=== PATIENT | female | born 1995 | race Caucasian/White ===

== ENCOUNTER → 2018-08-23 11:18 | Outpatient (CLI) | payer BC ==
[2016-01-13 19:16] VITALS: BMI 32.7
[~2018-08-23 11:18] MED LIST: COLACE100 MG PO; IBUPROFEN600 MG PO; PERCOCET 5-3251 TAB PO; PRENATAL COMPLE1 TAB PO; ZITHROMAX250 MG
== END | disposition home or self-care (01) ==
LOC: D.US 11:18
DX: R22.42 Localized swelling, mass and lump, left lower limb (principal)

== ENCOUNTER → 2018-09-26 16:07 | Outpatient (CLI) | payer BC ==
[2016-01-13 19:16] VITALS: BMI 32.7
== END | disposition home or self-care (01) ==
LOC: D.LDO 16:07
DX: O10.913 Unspecified pre-existing hypertension complicating pregnancy, third trimester (principal); Z3A.29 29 weeks gestation of pregnancy

== ENCOUNTER → 2018-09-29 11:45 | Outpatient (CLI) | payer BC ==
[2016-01-13 19:16] VITALS: BMI 32.7
[2018-09-29 12:35] LABS: HEMATOCRIT 34.7 % (36.0-48.0); HEMOGLOBIN 11.9 g/dL (12-16); MCH 29.4 pg (26.0-34.0); MCHC 34.3 g/dL (31.0-37.0); MCV 85.7 fL (80.0-100.0); MEAN PLATELET VOLUME 9.9 fL (7.4-10.4); RBC 4.05 10x6/uL (4.00-5.40); WBC 9.8 10x3/uL (4.8-10.8)
[2018-09-29 12:40] LABS: CALC OSMOLALITY 275 mosm/kg (275-300); CALCIUM 9.1 mg/dL (8.5-10.1); CARBON DIOXIDE 21.3 mmol/L (21.0-32.0); CHLORIDE - SERUM 106 mmol/L (98-107); CREATININE - SERUM 0.7 mg/dL (0.6-1.3); GLUCOSE 103 mg/dL (74-106); POTASSIUM - SERUM 3.5 mmol/L (3.5-5.1); SODIUM 139 mmol/L (136-145); UREA NITROGEN 6 mg/dL (7-18); URIC ACID 4.3 mg/dL (2.6-7.2); eGFR NON AFRICAN AMERICAN > 90 mL/min (90-120)
[2018-09-29 13:31] LABS: APPEARANCE SL CLDY (CLEAR); BACTERIA MODERATE /hpf (NONE SEEN); BILIRUBIN NEGATIVE (NEGATIVE); COLOR YELLOW (YELLOW); GLUCOSE NEGATIVE (NEGATIVE); KETONE NEGATIVE (NEGATIVE); MUCUS <1+ /lpf (NONE SEEN); NITRITE NEGATIVE (NEGATIVE); PROTEIN NEGATIVE (NEGATIVE); SPECIFIC GRAVITY 1.015 (1.005-1.020); UROBILINOGEN NORMAL (NORMAL)
== END | disposition home or self-care (01) ==
LOC: D.LDO 11:45
PROVIDERS: Obstetrics & Gynecology
DX: O26.893 Other specified pregnancy related conditions, third trimester (principal); Z3A.30 30 weeks gestation of pregnancy

== ENCOUNTER → 2018-10-04 11:23 | Outpatient (CLI) | payer BC ==
[2016-01-13 19:16] VITALS: BMI 32.7
== END | disposition home or self-care (01) ==
LOC: D.LDO 11:23
DX: O10.913 Unspecified pre-existing hypertension complicating pregnancy, third trimester (principal); Z3A.31 31 weeks gestation of pregnancy

== ENCOUNTER → 2018-10-07 11:42 | Outpatient (CLI) | payer BC ==
[2016-01-13 19:16] VITALS: BMI 32.7
[2018-10-07 12:27] LABS: BASOPHILS 0.1 % (0-2); EOSINOPHILS 1.3 % (0-7); HEMATOCRIT 35.5 % (36.0-48.0); IMMATURE GRANULOCYTES 0.8 % (0-5); LYMPHOCYTES 11.7 % (15-50); MCH 29.5 pg (26.0-34.0); MCHC 33.8 g/dL (31.0-37.0); MCV 87.2 fL (80.0-100.0); MEAN PLATELET VOLUME 9.9 fL (7.4-10.4); MONOCYTES 12.3 % (2-11); NEUTROPHILS 73.8 % (40-80); PLATELET COUNT 255 10x3/uL (130-400); RBC 4.07 10x6/uL (4.00-5.40); WBC 9.4 10x3/uL (4.8-10.8)
[2018-10-07 12:40] LABS: ALBUMIN 2.8 g/dL (3.4-5.0); ALKALINE PHOSPHATASE 107 U/L (46-116); ALT (SGPT) 19 U/L (10-68); BILIRUBIN - TOTAL 0.25 mg/dL (0.2-1.3); CALC OSMOLALITY 276 mosm/kg (275-300); CALCIUM 8.9 mg/dL (8.5-10.1); CARBON DIOXIDE 21.3 mmol/L (21.0-32.0); CHLORIDE - SERUM 104 mmol/L (98-107); CREATININE - SERUM 0.7 mg/dL (0.6-1.3); GLUCOSE 110 mg/dL (74-106); POTASSIUM - SERUM 3.4 mmol/L (3.5-5.1); PROTEIN - SERUM 6.5 g/dL (6.4-8.2); SODIUM 139 mmol/L (136-145); UREA NITROGEN 6 mg/dL (7-18); eGFR NON AFRICAN AMERICAN > 90 mL/min (90-120)
[2018-10-07 12:41] LABS: BILIRUBIN - DIRECT 0.05 mg/dL (0.00-0.30)
== END | disposition home or self-care (01) ==
LOC: D.LDO 11:42
PROVIDERS: Obstetrics & Gynecology
DX: O26.893 Other specified pregnancy related conditions, third trimester (principal); Z3A.31 31 weeks gestation of pregnancy

== ENCOUNTER → 2018-10-12 08:52 | Outpatient (CLI) | payer BC ==
[2016-01-13 19:16] VITALS: BMI 32.7
[2018-10-12 10:37] LABS: BASOPHILS 0.2 % (0-2); EOSINOPHILS 2.2 % (0-7); HEMATOCRIT 34.9 % (36.0-48.0); HEMOGLOBIN 11.8 g/dL (12-16); IMMATURE GRANULOCYTES 0.7 % (0-5); LYMPHOCYTES 13.9 % (15-50); MCH 29.4 pg (26.0-34.0); MCHC 33.8 g/dL (31.0-37.0); MEAN PLATELET VOLUME 9.6 fL (7.4-10.4); MONOCYTES 7.5 % (2-11); NEUTROPHILS 75.5 % (40-80); PLATELET COUNT 280 10x3/uL (130-400); RBC 4.01 10x6/uL (4.00-5.40); WBC 11.9 10x3/uL (4.8-10.8)
[2018-10-12 10:41] LABS: ALBUMIN 2.5 g/dL (3.4-5.0); ALKALINE PHOSPHATASE 131 U/L (46-116); ALT (SGPT) 23 U/L (10-68); BILIRUBIN - DIRECT 0.09 mg/dL (0.00-0.30); BILIRUBIN - INDIRECT 0.13 mg/dL (0.00-1.00); BILIRUBIN - TOTAL 0.22 mg/dL (0.2-1.3); CALC OSMOLALITY 274 mosm/kg (275-300); CALCIUM 8.6 mg/dL (8.5-10.1); CARBON DIOXIDE 21.3 mmol/L (21.0-32.0); CHLORIDE - SERUM 107 mmol/L (98-107); CREATININE - SERUM 0.6 mg/dL (0.6-1.3); GLUCOSE 101 mg/dL (74-106); POTASSIUM - SERUM 3.3 mmol/L (3.5-5.1); PROTEIN - SERUM 6.6 g/dL (6.4-8.2); SODIUM 139 mmol/L (136-145); UREA NITROGEN 5 mg/dL (7-18); URIC ACID 3.7 mg/dL (2.6-7.2); eGFR NON AFRICAN AMERICAN > 90 mL/min (90-120)
[2018-10-14 14:57] LABS: PROTEIN - URINE 27.4 mg/dL (0.0-11.9)
== END | disposition home or self-care (01) ==
LOC: D.LDO 08:52
PROVIDERS: Obstetrics & Gynecology
DX: O10.913 Unspecified pre-existing hypertension complicating pregnancy, third trimester (principal); Z3A.32 32 weeks gestation of pregnancy

== ENCOUNTER → 2018-10-15 12:31 | Outpatient (CLI) | payer BC ==
[2016-01-13 19:16] VITALS: BMI 32.7
== END | disposition home or self-care (01) ==
LOC: D.LDO 12:31
DX: O10.913 Unspecified pre-existing hypertension complicating pregnancy, third trimester (principal); Z3A.32 32 weeks gestation of pregnancy

== ENCOUNTER → 2018-10-17 12:18 | Outpatient (CLI) | payer BC ==
[2016-01-13 19:16] VITALS: BMI 32.7
== END | disposition home or self-care (01) ==
LOC: D.LDO 12:18
DX: O10.913 Unspecified pre-existing hypertension complicating pregnancy, third trimester (principal); Z3A.32 32 weeks gestation of pregnancy

== ENCOUNTER → 2018-10-20 07:51 | Outpatient (CLI) | payer BC ==
[2016-01-13 19:16] VITALS: BMI 32.7
[2018-10-20 08:42] LABS: BASOPHILS 0.2 % (0-2); EOSINOPHILS 2.1 % (0-7); HEMOGLOBIN 11.8 g/dL (12-16); IMMATURE GRANULOCYTES 1.2 % (0-5); LYMPHOCYTES 15.4 % (15-50); MCH 29.1 pg (26.0-34.0); MCHC 33.7 g/dL (31.0-37.0); MCV 86.2 fL (80.0-100.0); MEAN PLATELET VOLUME 9.7 fL (7.4-10.4); MONOCYTES 10.7 % (2-11); NEUTROPHILS 70.4 % (40-80); PLATELET COUNT 313 10x3/uL (130-400); RBC 4.06 10x6/uL (4.00-5.40); RDW 13.9 % (11.5-14.5); WBC 10.3 10x3/uL (4.8-10.8)
[2018-10-20 08:58] LABS: ALBUMIN 2.4 g/dL (3.4-5.0); ALKALINE PHOSPHATASE 126 U/L (46-116); ALT (SGPT) 24 U/L (10-68); BILIRUBIN - TOTAL 0.24 mg/dL (0.2-1.3); CALC OSMOLALITY 276 mosm/kg (275-300); CALCIUM 8.8 mg/dL (8.5-10.1); CARBON DIOXIDE 20.1 mmol/L (21.0-32.0); CHLORIDE - SERUM 106 mmol/L (98-107); CREATININE - SERUM 0.6 mg/dL (0.6-1.3); GLUCOSE 100 mg/dL (74-106); POTASSIUM - SERUM 3.6 mmol/L (3.5-5.1); PROTEIN - SERUM 6.3 g/dL (6.4-8.2); SODIUM 140 mmol/L (136-145); UREA NITROGEN 6 mg/dL (7-18); eGFR NON AFRICAN AMERICAN > 90 mL/min (90-120)
[2018-10-20 09:00] LABS: BILIRUBIN - DIRECT 0.06 mg/dL (0.00-0.30); BILIRUBIN - INDIRECT 0.18 mg/dL (0.00-1.00); URIC ACID 4.2 mg/dL (2.6-7.2)
== END | disposition home or self-care (01) ==
LOC: D.LDO 07:51
PROVIDERS: Obstetrics & Gynecology
DX: O10.913 Unspecified pre-existing hypertension complicating pregnancy, third trimester (principal); Z3A.33 33 weeks gestation of pregnancy

== ENCOUNTER → 2018-10-24 13:56 | Outpatient (CLI) | payer BC ==
[2016-01-13 19:16] VITALS: BMI 32.7
== END | disposition home or self-care (01) ==
LOC: D.LDO 13:56
DX: O10.913 Unspecified pre-existing hypertension complicating pregnancy, third trimester (principal); Z3A.33 33 weeks gestation of pregnancy

== ENCOUNTER 2018-10-27 20:07 | Outpatient (CLI) | payer BC ==
[2016-01-13 19:16] VITALS: BMI 32.7
[2018-10-27 20:30] LABS: BASOPHILS 0.2 % (0-2); EOSINOPHILS 1.8 % (0-7); IMMATURE GRANULOCYTES 0.7 % (0-5); LYMPHOCYTES 23.6 % (15-50); MCH 29.5 pg (26.0-34.0); MCHC 34.3 g/dL (31.0-37.0); MEAN PLATELET VOLUME 9.7 fL (7.4-10.4); MONOCYTES 10.1 % (2-11); NEUTROPHILS 63.6 % (40-80); PLATELET COUNT 292 10x3/uL (130-400); RBC 4.07 10x6/uL (4.00-5.40); RDW 13.9 % (11.5-14.5); WBC 11.1 10x3/uL (4.8-10.8)
[2018-10-27 20:50] LABS: ALBUMIN 2.6 g/dL (3.4-5.0); ALKALINE PHOSPHATASE 130 U/L (46-116); ALT (SGPT) 23 U/L (10-68); BILIRUBIN - TOTAL 0.25 mg/dL (0.2-1.3); CALC OSMOLALITY 271 mosm/kg (275-300); CALCIUM 8.8 mg/dL (8.5-10.1); CARBON DIOXIDE 21.7 mmol/L (21.0-32.0); CHLORIDE - SERUM 103 mmol/L (98-107); CREATININE - SERUM 0.7 mg/dL (0.6-1.3); GLUCOSE 105 mg/dL (74-106); LDH 163 U/L (81-234); POTASSIUM - SERUM 3.3 mmol/L (3.5-5.1); PROTEIN - SERUM 6.9 g/dL (6.4-8.2); SODIUM 137 mmol/L (136-145); UREA NITROGEN 6 mg/dL (7-18); URIC ACID 3.9 mg/dL (2.6-7.2); eGFR NON AFRICAN AMERICAN > 90 mL/min (90-120)
[2018-10-27 21:49] LABS: CREATININE - URINE 162.7 mg/dL (30-125); PRO/CRE RATIO URINE 0.2 mg/g; PROTEIN - URINE 36.1 mg/dL (0.0-11.9)
== END 2018-10-27 23:20 ==
LOC: D.LDO 20:07
PROVIDERS: Obstetrics & Gynecology
DX: O13.3 Gestational [pregnancy-induced] hypertension without significant proteinuria, third trimester (principal); Z3A.34 34 weeks gestation of pregnancy

== ENCOUNTER → 2018-10-31 12:51 | Outpatient (CLI) | payer BC ==
[2016-01-13 19:16] VITALS: BMI 32.7
== END | disposition home or self-care (01) ==
LOC: D.LDO 12:51
DX: O26.893 Other specified pregnancy related conditions, third trimester (principal); Z3A.34 34 weeks gestation of pregnancy

== ENCOUNTER → 2018-11-03 10:31 | Outpatient (CLI) | payer BC ==
[2016-01-13 19:16] VITALS: BMI 32.7
[2018-11-03 10:56] LABS: BASOPHILS 0.2 % (0-2); EOSINOPHILS 1.8 % (0-7); HEMATOCRIT 35.6 % (36.0-48.0); HEMOGLOBIN 12.1 g/dL (12-16); IMMATURE GRANULOCYTES 0.7 % (0-5); MCV 85.4 fL (80.0-100.0); MEAN PLATELET VOLUME 9.9 fL (7.4-10.4); MONOCYTES 8.4 % (2-11); NEUTROPHILS 70.9 % (40-80); PLATELET COUNT 268 10x3/uL (130-400); RBC 4.17 10x6/uL (4.00-5.40); RDW 13.9 % (11.5-14.5); WBC 10.6 10x3/uL (4.8-10.8)
[2018-11-03 11:04] LABS: ALBUMIN 2.4 g/dL (3.4-5.0); ALKALINE PHOSPHATASE 140 U/L (46-116); ALT (SGPT) 19 U/L (10-68); BILIRUBIN - DIRECT 0.03 mg/dL (0.00-0.30); BILIRUBIN - INDIRECT 0.14 mg/dL (0.00-1.00); BILIRUBIN - TOTAL 0.17 mg/dL (0.2-1.3); CALC OSMOLALITY 273 mosm/kg (275-300); CALCIUM 8.4 mg/dL (8.5-10.1); CARBON DIOXIDE 18.9 mmol/L (21.0-32.0); CHLORIDE - SERUM 105 mmol/L (98-107); CREATININE - SERUM 0.6 mg/dL (0.6-1.3); GLUCOSE 104 mg/dL (74-106); POTASSIUM - SERUM 3.6 mmol/L (3.5-5.1); PROTEIN - SERUM 6.5 g/dL (6.4-8.2); SODIUM 138 mmol/L (136-145); UREA NITROGEN 6 mg/dL (7-18); URIC ACID 4.3 mg/dL (2.6-7.2); eGFR NON AFRICAN AMERICAN > 90 mL/min (90-120)
== END | disposition home or self-care (01) ==
LOC: D.LDO 10:31
PROVIDERS: Obstetrics & Gynecology
DX: O10.913 Unspecified pre-existing hypertension complicating pregnancy, third trimester (principal); Z3A.35 35 weeks gestation of pregnancy

== ENCOUNTER → 2018-11-07 12:52 | Outpatient (CLI) | payer BC ==
[2016-01-13 19:16] VITALS: BMI 32.7
== END | disposition home or self-care (01) ==
LOC: D.LDO 12:52
DX: O13.3 Gestational [pregnancy-induced] hypertension without significant proteinuria, third trimester (principal); Z3A.35 35 weeks gestation of pregnancy

== ENCOUNTER → 2018-11-14 13:04 | Outpatient (CLI) | payer BC ==
[2016-01-13 19:16] VITALS: BMI 32.7
[~2018-11-14 13:04] MED LIST changes: +PRENAVITE1 TAB PO
== END | disposition home or self-care (01) ==
LOC: D.LDO 13:04
PROVIDERS: ATTEND Obstetrics & Gynecology
DX: O13.3 Gestational [pregnancy-induced] hypertension without significant proteinuria, third trimester (principal); Z3A.36 36 weeks gestation of pregnancy

== ENCOUNTER → 2018-11-17 10:16 | Outpatient (CLI) | payer BC ==
[2016-01-13 19:16] VITALS: BMI 32.7
[2018-11-17 11:33] LABS: HEMATOCRIT 34.9 % (36.0-48.0); HEMOGLOBIN 11.6 g/dL (12-16); MCH 28.6 pg (26.0-34.0); MCHC 33.2 g/dL (31.0-37.0); MCV 86.2 fL (80.0-100.0); MEAN PLATELET VOLUME 10.4 fL (7.4-10.4); RBC 4.05 10x6/uL (4.00-5.40); WBC 9.8 10x3/uL (4.8-10.8)
[2018-11-17 11:58] LABS: CALC OSMOLALITY 276 mosm/kg (275-300); CALCIUM 8.7 mg/dL (8.5-10.1); CHLORIDE - SERUM 106 mmol/L (98-107); CREATININE - SERUM 0.7 mg/dL (0.6-1.3); GLUCOSE 117 mg/dL (74-106); POTASSIUM - SERUM 3.5 mmol/L (3.5-5.1); SODIUM 140 mmol/L (136-145); UREA NITROGEN 5 mg/dL (7-18); URIC ACID 4.5 mg/dL (2.6-7.2); eGFR NON AFRICAN AMERICAN > 90 mL/min (90-120)
== END | disposition home or self-care (01) ==
LOC: D.LDO 10:16
PROVIDERS: ATTEND Obstetrics & Gynecology
DX: O16.2 Unspecified maternal hypertension, second trimester (principal); Z3A.00 Weeks of gestation of pregnancy not specified

== ENCOUNTER → 2018-11-21 12:41 | Outpatient (CLI) | payer BC ==
[2016-01-13 19:16] VITALS: BMI 32.7
[~2018-11-21 12:41] MED LIST changes: +HYDROCODON-ACE1 EA10 PO; +MOTRIN600 MG PEG
== END | disposition home or self-care (01) ==
LOC: D.LDO 12:41
PROVIDERS: ATTEND Obstetrics & Gynecology
DX: O26.893 Other specified pregnancy related conditions, third trimester (principal); R03.0 Elevated blood-pressure reading, without diagnosis of hypertension; Z3A.37 37 weeks gestation of pregnancy

== ENCOUNTER 2018-11-22 10:31 | Inpatient (IN) | payer BC ==
[~2018-11-22] VITALS: Ht 162.6 cm; Wt 103.4 kg
[~2018-11-22 10:31] MED LIST changes: -HYDROCODON-ACE1 EA10 PO; -MOTRIN600 MG PEG; -PRENAVITE1 TAB PO
[2018-11-22] MEDS ORDERED: PRENAVITE1 TAB PO (10:32)
[2018-11-22 10:44] VITALS: BP 144/85; BMI 39.2
[2018-11-22 11:00] LABS: HEMATOCRIT 36.5 % (36.0-48.0); HEMOGLOBIN 12.3 g/dL (12-16); MCH 28.7 pg (26.0-34.0); MCHC 33.7 g/dL (31.0-37.0); MCV 85.3 fL (80.0-100.0); MEAN PLATELET VOLUME 10.1 fL (7.4-10.4); RBC 4.28 10x6/uL (4.00-5.40); RDW 13.8 % (11.5-14.5); WBC 9.5 10x3/uL (4.8-10.8)
[2018-11-22 13:14] LABS: APPEARANCE CLEAR (CLEAR); BACTERIA FEW /hpf (NONE SEEN); BILIRUBIN NEGATIVE (NEGATIVE); COLOR YELLOW (YELLOW); EPITHELIAL CELLS 0-5 /hpf (0-5); GLUCOSE NEGATIVE (NEGATIVE); KETONE NEGATIVE (NEGATIVE); MUCUS <1+ /lpf (NONE SEEN); NITRITE NEGATIVE (NEGATIVE); PROTEIN NEGATIVE (NEGATIVE); UROBILINOGEN NORMAL (NORMAL); WHITE CELLS - URINE 0-5 /hpf (0-5)
--- NOTE | 2018-11-22 14:58 | NUR ---
SCANT BLEEDING NOTED TO PERIPAD
[2018-11-22 15:24] VITALS: BP 103/52
--- NOTE | 2018-11-22 15:30 | NUR ---
RECEIVED BY BED FROM RECOVERY ROOM, SHE IS AWAKE AND ALERT. ROTH CATH TO BEDSIDE GRAVITY DRAIN WITH TOTAL OF 1100ML NOTED TO BAG. IV TO LEFT HAND INFUSING LR VIA PUMP. PT IS ABLE TO MOVE HER LEGS AND RATES PAIN AT 5/10. FUNDUS FIRM AT U/1 WITH SCANT BLEEDING NOTED WITHOUT CLOTS. SCDS BILAT ORDERED AND CONNECTED TO PUMP. CALL LIGHT IN REACH, SIDE RAILS RAISED X 2, SPOUSE AT BEDSIDE.
--- NOTE | 2018-11-22 16:15 | NUR ---
FUNDUS FIRM WITH MASSAGE AT U/1, LIGHT LOCHIA NOTED WITHOUT CLOTS. TOWELS/PADS CHANGED. NO OTHER NEEDS AT THIS TIME. CALL LIGHT REMAINS IN REACH, SPOUSE AND ADDITIONAL FAMILY MEMBERS AT BEDSIDE.
--- NOTE | 2018-11-22 16:30 | NUR ---
FUNDUS FIRM AT U/1 WITH LIGHT LOCHIA NOTED, PAM CARE PER NURSE, TOWELS CHANGED. REMAINS SKIN TO SKIN PER NURSERY NURSE INSTRUCTIONS. SPOUSE AT BEDSIDE, CALL LIGHT IN REACH.
--- NOTE | 2018-11-22 16:57 | NUR ---
POSITION CHANGED TO LEFT TILT PER REQUEST. REMAINS SKIN TO SKIN AT THIS TIME. FAMILY AT BEDSIDE, SIDE RAILS UP X 2 WITH PHONE AND CALL LIGHT IN REACH.
--- NOTE | 2018-11-22 17:28 | NUR ---
DENIES NEEDS AT THIS TIME, RATES PAIN AT 3/10 AND IS USING PROFESSOR OF FINE ART NEEDED. FUNDUS FIRM AT U/U. FAMILY AT BEDSIDE AND PT BONDING WITH INFANT. CALL LIGHT IN REACH.
[2018-11-22 18:00] VITALS: BP 114/52
--- NOTE | 2018-11-22 18:00 | NUR ---
INFANT TAKEN BY CRIB TO NURSERY. FAMILY HAS LEFT AT THIS TIME. PT RATES PAIN AT 3/10, FUNDUS FIRM AT U/1 WITH MODERATE LOCHIA NOTED BUT NO CLOTS. PAM/ROTH CARE PER RN, PT ABLE TO LIFT BOTTOM SO THAT PINK PAD, BLUE CHUX AND TOWELS COULD BE CHANGED. SHE ALSO MOVES HERSELF UP IN BED AND RAISES HEAD OF BED TO SEMI FOWLERS. ROTH CATH WITH 300ML ADDED URINE SINCE 1600. LARGE CUP OF ICE PER REQUEST. CALL LIGHT IN REACH WITH SIDE RAILS UP X 2, SPOUSE AT BEDSIDE.
--- NOTE | 2018-11-22 20:00 | NUR ---
PT REC'D IN BED AT THIS TIME. DENIES COMPLAINTS OF PAIN NOTED AT THIS TIME. IV OF NS+2O UNITS OF PITOCIN INFUSING TO THE LEFT HAND AT 125 ML/HR. STIE CLEAR AND PATENT AT THIS TIME. LUNGS CLEAR. BS HYPOACTIVE. DRESSING CDI. FUNDUS FIRM AND MIDLINE WITH MODERATE LOCHIA NOTED. ROTH CATH PATENT WITH 1100 ML OF URINE NOTED. SCDS IN PLACE AND FUNCTIONAL . SIDERAILS UP FOR SAFETY. CALL LIGHT IN PT REACH. Adi MELTON. RN
--- NOTE | 2018-11-22 21:30 | NUR ---
ICE PACK REFILLED AT THIS TIME. DRESSING REMIANS CDI. Adi MELTON RN
--- NOTE | 2018-11-22 23:00 | NUR ---
MOM EXPRESSES HER WISH TO BREASTFEED. INFANT UNABLE TO EAT DUE TO 'S CONDITION. BREASTPUMP TAKEN TO PT, SET UP AND INSTRUCTED ON HOW TO USE TO TO EXPRESS MILK 8-10 TIMES IN 24 HOURS OR EVERY 2-3 HOURS. RENEE RN, BSN IBCLC
--- NOTE | 2018-11-22 23:55 | NUR ---
PT RESTING AT THIS TIME. NO DISTRESS NOTED. Adi MELTON RN
--- NOTE | 2018-11-23 02:40 | NUR ---
PERICARE PROVIDED AT THIS TIME. MODERATE LOCHIA NOTED. Adi MELTON RN
--- NOTE | 2018-11-23 03:30 | NUR ---
PT RESTING. DENIES PAIN. Adi MELTON RN
--- NOTE | 2018-11-23 07:00 | NUR ---
DR GRACE HERE TO SEE PT- NEW ORDES RECEIVED.
[2018-11-23 07:31] LABS: RAPID PLASMA REAGIN Non Reactive (Non Reactive)
[2018-11-23 07:55] VITALS: BP 135/63
[2018-11-23 08:12] LABS: BASOPHILS 0.2 % (0-2); EOSINOPHILS 2.3 % (0-7); HEMATOCRIT 33.1 % (36.0-48.0); HEMOGLOBIN 11.1 g/dL (12-16); IMMATURE GRANULOCYTES 0.4 % (0-5); LYMPHOCYTES 11.4 % (15-50); MCH 28.8 pg (26.0-34.0); MCHC 33.5 g/dL (31.0-37.0); MCV 85.8 fL (80.0-100.0); MEAN PLATELET VOLUME 10.5 fL (7.4-10.4); MONOCYTES 9.6 % (2-11); NEUTROPHILS 76.1 % (40-80); RBC 3.86 10x6/uL (4.00-5.40); WBC 11.7 10x3/uL (4.8-10.8)
--- NOTE | 2018-11-23 08:12 | NUR ---
ASSESSMENT COMPLETE. SITTING UP IN BED. NO REQUESTS. SMALL TO MOD LOCHIA NOTED ON PAD.
[2018-11-23 08:17] LABS: PLATELET COUNT 236 10x3/uL (130-400)
[2018-11-23 09:54] VITALS: Ht 162.6 cm; Wt 103.4 kg
--- NOTE | 2018-11-23 10:00 | NUR ---
THIS RN TO BEDSIDE TO DISCONTINUE ROTH AND SALINE LOCK IV PER MD ORDERS TO "NORMALIZE" PATIENT. PT CURRENT RATES PAIN 0/10. UNABLE TO DISCONNECT IV LINE FROM IV SITE, THEREFORE AFTER REVIEWING MOST RECENT LAB VALUES, PT'S IV SITE DISCONTINUED. SITE WNL. BANDAID PLACED OVER SITE. ROTH CATH D/C'D INTACT. APPROX 900ML TOTOAL VOLUME EMPTIED. PT TOLERATED WELL.
--- NOTE | 2018-11-23 10:28 | NUR ---
PT ATTEMPTS TO GET OUT OF BED. PT UNABLE TO AT THIS TIME DUE TO INCREASED PAIN. TEACHING PROVIDED. PAIN MEDICATION OFFERED. PT ACCEPTS. MOTRIN 600MG PO AND NORCO 10/325MG PO GIVEN. NURSERY NOW AT BEDSIDE ASSISTING W/. FOB REMAINS AT BEDSIDE. PT DENIES FURTHER NEEDS AT THIS TIME. BED LOW, SIDE RAILS UP X 2, CALL LIGHT AT BEDSIDE.
--- NOTE | 2018-11-23 11:51 | NUR ---
UP TO BATHROOM- VOIDED 300CC.
--- NOTE | 2018-11-23 13:15 | NUR ---
PT SITTING UP IN BED, VISITING WITH FAMILY MEMBER. DENIES NEEDS AT THIS TIME.
[2018-11-23 14:02] VITALS: BP 130/77
--- NOTE | 2018-11-23 14:02 | NUR ---
THIS RN TO ROOM FOR PT CHECK AND VS. VSS, SEE FLOWSHEET FOR DOC. PT DENIES PAIN AT THIS TIME, STATES SHE WOULD LIKE TO SHOWER. PT PROVIDED WITH SHOWER SUPPLIES. SHOWER DRAIN NOTED TO HAVE MATERIAL AROUND IT. ENGINEERING NOTIFIED. WILL RETURN TO ASSIST PT TO SHOWER.
--- NOTE | 2018-11-23 15:50 | NUR ---
THIS RN TO ROOM FOR PT CHECK. PT AMBULATING IN ROOM, REQUESTING PAIN MEDICATION FOR WORSENING PAIN WITH MOVEMENT. PT ADMIN NORCO 10 PER ORDER, SEE EMAR FOR DOC. PT STATES SHE WOULD LIKE TO GET PAIN UNDER CONTROL BEFORE SHOWERING. WILL REASSESS PAIN. SRUx2, CL IN REACH. SPOUSE AT BEDSIDE.
--- NOTE | 2018-11-23 17:00 | NUR ---
PT TRANSFERRED TO ROOM 1257. PT TO BED. PT STATES PAIN IS BETTER AFTER NORCO, DENIES NEED FOR INTERVENTION AT THIS TIME. PT SETTING UP DINNER TRAY, STATES SHE WILL EAT DINNER AND THEN SHOWER. PT ORIENTED TO NEW ROOM AND PULL CORD IN BATHROOM IF DIZZY OR IN NEED OF ASSISTANCE IN SHOWER. PT VERBALIZES UNDERSTANDING, STATES SPOUSE WILL HELP HER IN SHOWER. SRUx2, CL IN REACH. WILL CONT TO MONITOR.
--- NOTE | 2018-11-23 18:10 | NUR ---
PT OUT OF SHOWER, CALLS FOR RN TO LOOK AT FEET. PT STATES THEY FEEL HEAVY AND SWOLLEN. GENERALIZED EDEMA NOTED TO LE BILAT. PT EDUCATED ON FLUID SHIFT , INSTRUCTED TO CALL OUT WHEN SHE IS IN BED FOR FURTHER EVALUATION OF PULSES AND CAP REFILL. PT DENIES NEED FOR ASSIST DRYING AND DRESSING, VERBALIZES SHE WILL CALL OUT WHEN SETTLED IN BED. SPOUSE ASSISTING PT AT THIS TIME. WILL CONT TO MONITOR.
[2018-11-23 19:13] VITALS: BP 113/63
--- NOTE | 2018-11-23 19:13 | NUR ---
LYING IN BED WITH HOB AT 45 DEGREES. VISITORS AT BEDSIDE. BREATH SOUNDS CLEAR AND BOWEL SOUNDS ACTIVE. ABD. INCISION CLEAN AND DRY. PT. REPORTS PASSING FLATUS. EDEMA NOTED IN FEET ALTHOUGH NOT PITTING. RATES PAIN A 3 OF 10 ON PAIN SCALE. REPORTS THAT SHE SHOWER EARLIER IN SHIFT. CHEERFUL. DENIES ANY PAIN IN LOWER EXTREMITIES. INFANT IN ROOM BEING HELD BY VISITOR. DENIES ANY NEEDS AT THIS TIME.
--- NOTE | 2018-11-23 21:36 | NUR ---
LIGHTS DIMMED IN ROOM. INFANT IN OPEN CRIB AT BEDSIDE. PT. ON COMPUTER SITTING UP WITH HOB AT 45 DEGREES. CHEERFUL AND DENIES ANY NEEDS.
--- NOTE | 2018-11-23 22:35 | NUR ---
PT. C/O INCISION PAIN THAT PT. RATES AN 8 OF 10 ON PAIN SCALE. NORCO GIVEN ORDERED. HOB ELEVATED 45 DEGREES. BOTTLE FEEDING AT PRESENT. FOB SITTING ON BED WITH PT. ENCOURAGED PT. TO LET THIS NURSE KNOW WHEN SHE WAS READY FOR SLEEP SO SCDS COULD BE APPLIED. PT. STATES UNDERSTANDING.
--- NOTE | 2018-11-23 23:35 | NUR ---
PT. AWAKENED FOR VITAL SIGNS. DENIES ANY PAIN AT THIS TIME.
--- NOTE | 2018-11-24 01:05 | NUR ---
INTO PT. ROOM DUE TO 'S IV ALARMING. PT. LYING ON RT SIDE WITH EYES CLOSED AND NOT AROUSING TO ALARM OF IV. IV ALARM MANAGED. PT. AWAKE BRIEFLY. IN OPEN CRIB AT BEDSIDE SLEEPING WITH UNLABORED RESPIRATIONS.
[2018-11-24 02:22] VITALS: BP 120/65
--- NOTE | 2018-11-24 02:22 | NUR ---
PT. REQUESTING MED. FOR INCISIONAL PAIN. NORCO GIVEN ORDERED. IN OPEN CRIB AT BEDSIDE. FOB UP AND ABOUT IN ROOM CARING FOR INFANT. PT. LYING ON BACK WITH HOB AT 45 DEGREES.
--- NOTE | 2018-11-24 03:12 | NUR ---
PT. AWAKE AT PRESENT. STATES PAIN WAS RELIEVED AND RATES 2 OF 10 ON PAIN SCALE. DENIES ANY NEEDS AT THIS TIME. IN ROOM IN OPEN CRIB.
--- NOTE | 2018-11-24 04:18 | NUR ---
PT. LYING ON BACK WITH HOB AT 30 DEGREES. DENIES ANY NEEDS. IN OPEN CRIB AT BEDSIDE.
--- NOTE | 2018-11-24 06:07 | NUR ---
PT. CHEERFUL. SITTING UP FEEDING BABY. DENIES ANY NEEDS AT THIS TIME.
[2018-11-24 07:40] VITALS: BP 128/71
--- NOTE | 2018-11-24 07:40 | NUR ---
THIS RN TO ROOM FOR SHIFT ASSESSMENT. VSS, SHIFT ASSESSMENT COMPLETE, SEE FLOWSHEET FOR DOC. PT RATING PAIN 5/10 AT REST, STATES IS WORSE WITH MOVEMENT AND SHE PLANS TO GET OOB SOON, WANTS PAIN MEDICATION. PAIN MEDS ADMIN ORDERED, SEE EMAR FOR DOC. PT PROVIDED WITH FRESH ICE WATER. PT DENIES HEAVY LOCHIA THROUGHOUT THE NIGHT, INSTRUCTED ON S/S TO REPORT. PT ALSO ENCOURAGED TO KEEP BLADDER EMPTIED REGULARLY TO DECREASE CRAMPING AND LOCHIA. UNDERSTANDING VERBALIZED. PT DENIES NAUSEA, SETTING UP BREAKFAST TRAY AT THIS TIME, DENIES NEEDS. SIG OTHER IN ROOM. SRUx2, CL IN REACH. WILL CONT TO MONITOR.
--- NOTE | 2018-11-24 09:50 | NUR ---
DRY CLEANER HELPER IN ROOM WITH PT AT THIS TIME. PT C/O LOSS OF SUCTION WITH CURRENT BREASTPUMP PROVIDED BY HOSPITAL. PUMP REPLACED. Fox. ASSISTING WITH PUMP SETUP AT THIS TIME.
--- NOTE | 2018-11-24 10:10 | NUR ---
PT SITTING UP IN BED HOLDING . COLACE ADMIN ORDERED, SEE EMAR FOR DOC. PT RATES PAIN 2/10 AT THIS TIME. STATES SHE IS ABOUT TO GET UP AND WALK AGAIN. PT DENIES NEEDS. SRUx2, CL IN REACH. SIG OTHER AT BEDSIDE. WILL CONT TO MONITOR.
--- NOTE | 2018-11-24 10:43 | NUR ---
THIS RN TO ROOM, PT UPDATED ON POC. PT USING BREASTPUMP, STATES IT IS WORKING WELL WITH NEW PUMP. PT DENIES NEEDS. WILL CONT TO MONITOR.
--- NOTE | 2018-11-24 11:45 | NUR ---
PT CALLS OUT MANAGER FAST FOOD LIGHT FOR MORE PADS AND PANTIES. PT DENIES FURTHER NEEDS AT THIS TIME. PT UP AMBULATING IN ROOM AND TALKING ON PHONE. WILL CONT TO MONITOR.
[2018-11-24 12:10] VITALS: BP 108/75
--- NOTE | 2018-11-24 12:10 | NUR ---
THIS RN TO ROOM FOR PT CHECK AND VS. PT IN BR, AMBULATES TO BEDSIDE CHAIR. VSS, SEE FLOWSHEET FOR DOC. PT DENIES PAIN OR ANY NEEDS AT THIS TIME, STATES SHE FEELS BETTER UP WALKING AROUND. PT VISITING WITH FAMILY IN ROOM. WILL CONT TO MONITOR.
--- NOTE | 2018-11-24 12:33 | NUR ---
LE @ 9:00 Rita Wright 11/24/18 S: Patient states due to her last experience with not being able to successfully and latch baby, she would like to pump and provide breastmilk in a bottle. States since she delivered she has pumped 4 times. She tries to pump every 3 hours. The pump recently stopped working and asked how can she get it replaced to use. Denies questions about pump or latching infant. Patient states she is willing to latch baby. Verbally agrees for infant next feeding to try latching at the breast and to ask for help as needed with . Denies questions at this time or pain with pumping. O: Patient in bed holding infant for feeding formula. Validated clients concerns and informed every experience is different. Explained breastmilk composition, supply and demand, feeding cues, how to verify infant is latched correctly, position, and how to verify correct usages of pump. Asked patient if interesting in latching ? For infant next feeding please has nursery staff for help with latching . does take time, practice, and patience in the beginning. L&D nurse changed out pump for patient. Verified pump works correctly. Explained how to use pump. Encouraged to pump every 2-3 hours to help with establishing your supply. A: Patient pumping due to previous experiences of not being able to latch . P: Continue to promote during hospital visit. Hoda Daniel, CLC
--- NOTE | 2018-11-24 14:13 | NUR ---
THIS RN TO ROOM FOR PT CHECK. PT LYING IN BED SUPINE, HOB 60-90 DEGREES, RESTING WITH EYES CLOSED. RESP EVEN AND UNLABORED. SIG OTHER AT BEDSIDE. PT LEFT UNDISTURBED FOR REST. WILL CONT TO MONITOR.
--- NOTE | 2018-11-24 15:30 | NUR ---
THIS RN TO ROOM FOR PT CHECK AND VS. PT RESTING IN BED WITH EYES CLOSED, SUPINE WITH RIGHT TILT. RESP EVEN AND UNLABORED. PT LEFT UNDISTURBED FOR REST. SRUx2, CL IN REACH.
--- NOTE | 2018-11-24 16:50 | NUR ---
PT CALLS OUT CERTIFIED SURGICAL ASSISTANT LIGHT REQUESTING PAIN MEDICATION. THIS RN TO ROOM. PT SITTING UP IN BED, . PT STATES AFTER NAPPING, SHE GOT UP TO BR AND PAIN WAS WORSE WITH MOVEMENT. PT ADMIN PRN PAIN MEDS ORDERED FOR PAIN RATED 7/10, SEE EMAR FOR DOC. PT ALSO PROVIDED WITH BATH WIPES PER REQUEST. PT DENIES FURTHER NEEDS, CONTINUES INFANT. SIG OTHER IN ROOM. SRUx2, CL IN REACH. WILL CONT TO MONITOR.
--- NOTE | 2018-11-24 17:55 | NUR ---
THIS RN TO ROOM FOR PT CHECK AND PAIN REASSESSMENT. PT SITTING UP IN BED HOLDING INFANT, RATES PAIN 3/10, STATES MEDS HELPED "A LOT." PT DENIES NEEDS AT THIS TIME. SRUx2, CL IN REACH.
--- NOTE | 2018-11-24 18:35 | NUR ---
PT CALLS OUT PRICING LEAD LIGHT FOR CUPS OF ICE FOR DRINKS. THIS RN TO ROOM WITH REQUESTED ICE. PT AND FAMILY SETTING UP DINNER TO EAT, DENIES FURTHER NEEDS. [place], CL IN REACH. WILL CONT TO MONITOR.
--- NOTE | 2018-11-24 19:35 | NUR ---
ASSESSMENT PER FLOW SHEET, VS OBTAINED, FF, ML, U/1, PT REPORTS LITE BLEEDING WITH NO CLOTS, BIKINI LINE INC WITH JOSE MIGUEL CDI WITH NO DRAINAGE NOTED, PAM PAD OVER INC FOR COMFORT AND MOISTURE CONTROL, PT REPORTS FLATUS, NO BM, AND VOIDING WITH NO DIFFICULTY, PT RATES ABD CRAMPING 12/21, WILL ADM MEDS WHEN DUE, PT VERBALIZES UNDERSTANDING, DINNER TRAY AND TRASH REMOVED, BABY BACK TO PTS ARMS, DENIES FURTHER NEEDS
--- NOTE | 2018-11-24 19:35 | NUR ---
ASSESSMENT PER FLOW SHEET, VS OBTAINED, FF, ML, U/1, PT REPORTS LITE BLEEDING WITH A FEW PEA SIZE CLOTS, BIKINI INC WITH JOSE MIGUEL CDI WITH NO DRAINAGE NOTED, NSY NURSE IN ROOM DOING INFANT ASSESSMENT AT THIS TIME, PT REPORTS FLATUS, NO BM AND VOIDING WITH NO DIFFICULTY, PT RATES INC PAIN 10/23, INFORMED PT THAT I WILL ADM MEDS WHEN DUE, PT VERBALIZES UNDERSTANDING, DENIES NEEDS AT THIS TIME, FOB AND OTHER CHILD IN ROOM, TRASH REMOVED
--- NOTE | 2018-11-24 20:22 | NUR ---
PT HOLDING BABY, INFORMED PT THAT I WILL ADM PAIN MED WITH THE COLACE, PT STATES "THAT WILL BE JUST FINE", DENIES NEEDS AT THIS TIME, FOB AND OTHER CHILD IN ROOM
--- NOTE | 2018-11-24 21:05 | NUR ---
ADM HERRERA PER MD ORDERS, SEE EMAR, DENIES FURTHER NEEDS
--- NOTE | 2018-11-24 22:35 | NUR ---
PT WATCHING TV, OTHER CHILD AND AND FOB LAYING IN BED WITH PT, PT RATES PAIN 1-2/10, DENIES NEEDS AT THIS TIME, BABY IN OPEN CRIB CART AT THIS TIME
[2018-11-24 23:26] VITALS: BP 117/64
--- NOTE | 2018-11-24 23:26 | NUR ---
PT AWAKE, VS OBTAINED, ADM MOTRIN PER MD ORDERS, SEE EMAR, PT REQUESTED AND SERVED [facility] [place], DENIES FURTHER NEEDS, IN OPEN CRIB CART AT BEDSIDE, OTHER CHILD IN BED WITH PT, FOB ASLEEP ON COUCH
--- NOTE | 2018-11-25 00:45 | NUR ---
PT BOTTLE FEEDING BABY AT THIS TIME, INFORMED PT THAT SHE COULD HAVE PAIN MED AT 1:05 AM, PT STATES "GOOD, I NEED IT", INFORMED PT THAT I WILL BE BACK THEN TO ADM, PT VERBALIZES UNDERSTANDING, DENIES FURTHER NEEDS, OTHER CHILD ASLEEP IN BED WITH PT AND FOB ASLEEP ON COUCH
--- NOTE | 2018-11-25 01:02 | NUR ---
ADM BUTCHER PER MD ORDERS, SEE EMAR, PT DENIES FURTHER NEEDS
--- NOTE | 2018-11-25 02:23 | NUR ---
PT RESTING WITH EYES CLOSED, RESP QUIET, NO DISTRESS NOTED, LEFT UNDISTURBED AT THIS TIME, BABY IN OPEN CRIB AT BEDSIDE, FOB AND OTHER CHILD ASLEEP ON COUCH
--- NOTE | 2018-11-25 04:14 | NUR ---
PT AWAKE, GETTING READY TO FEED BABY, REQUESTS PAIN MED AT 5AM, INFORMED PT THAT I WILL ADM THEN AND ALSO OBTAIN VS, PT VERBALIZES UNDERSTANDING, REQUESTED OVERHEAD LIGHT ON DIM, DENIES FURTHER NEEDS, FOB ASLEEP ON COUCH, OTHER CHILD AWAKE SITTING IN BED WITH PT
--- NOTE | 2018-11-25 05:00 | NUR ---
PT TESTER WASTE DISPOSAL LEAKAGE LIGHT, PT REQUESTED AND PROVIDED TOWELS AND WASHCLOTHS, INFORMED PT THAT HER MOTRIN WAS DUE AT 5:30 AND THAT I CAN ADM BOTH AT THAT TIME OR DO THE PAIN MED AT THIS TIME, PT REQUESTS BOTH AT 5:30, DENIES FURTHER NEEDS
[2018-11-25 05:34] VITALS: BP 114/62
--- NOTE | 2018-11-25 05:34 | NUR ---
PT AWAKE, VS OBTAINED, ADM MOTRIN AND NORCO PER MD ORDERS, SEE EMAR, WITH FRESH H20, DENIES FURTHER NEEDS
--- NOTE | 2018-11-25 06:28 | NUR ---
PT RESTING WITH EYES CLOSED, RESP QUIET, NO DISTRESS NOTED, LEFT UNDISTRUBED AT THIS TIME, FOB AND OTHER CHILD ASLEEP ON COUCH
--- NOTE | 2018-11-25 07:30 | NUR ---
AM ASSESSMENT COMPLETED CHARTED ON FLOWSHEET, INCISION CLEAN AND DRY WITH JOSE MIGUEL IN PLACE. FUNDUS FIRM WITH MASSAGE AT U/U WITH SCANT BLEEDING NOTED. RATES PAIN AT 1/10, QUESTIONED WHEN SHE WOULD BE ABLE TO LEAVE AND UNDERSTANDS THAT WAITING FOR PEDI TO MAKE ROUNDS ON .
--- NOTE | 2018-11-25 08:30 | NUR ---
Rita Wright Didi 11/25/18 S: Patient states she has only pumped twice since yesterday due to her only getting out small amounts. She has tried latching baby but seems to have a hard time latching. Asked if her nipples were the problem of why can't latch. Patient verbally agrees she knows how to properly apply nipple shield and to ask for help as needed with latching. Thanked for CLC for helping her with using the nipple shield and with latching infant. Verbally agrees to work on latching infant with the nipple shield. O: Patient sitting up in bed feeding a formula bottle. sleeping and not sucking. Asked how did things go with pumping yesterday, have you been able attempt to latch infant. Validated patient concerns. Observed patient nipples. Her right nipple looks inverted and the left nipple is flat. Provided patient with a size small nipples shield. This shield will help draw out your nipple making it easier for infant to latch. Showed how to correctly apply. Observed patient applying nipple shield and verified she does know how to correctly use. was placed on the left breast with the nipple shield on. He sucked for less then a minutes at 8:15. When latched his mouth was 140 degrees, round checks. Due to just being fed formula he isn't interested in nursing at this time. Praised patient and explained infant can latch, he just needed a little help, and some time to practice. Trying latching infant when he is calm and about every 2 hours or as needed. is a learn experience for both mother and infant. does take time, practice, and patience in the beginning. Please let the nursery staff know if you need any help with . Explained benefits for mother and , positions, how to verify infant is latched correctly to the breast, breastmilk composition, and supply and demand . Explained breastmilk composition, normal feeding patterns, and pumping outputs. A: Patient needs nipple shield with latching due to flat/inverted nipples. Infant and patient learning how to breastfeed. P: Continue to support and promote during hospital visit. Hoda Daniel, CLC
[2018-11-25] MEDS ORDERED: HYDROCODON-ACE1 EA10 PO (10:32)
[2018-11-25] MEDS ORDERED: MOTRIN600 MG PEG (10:41)
--- NOTE | 2018-11-25 10:45 | NUR ---
PAM PAD AND MESH BRIEFS TAKEN TO ROOM PER REQUEST. PT AMB TO NBN TO RECIEVE DISCHARGE PAPERS.
--- NOTE | 2018-11-25 11:05 | NUR ---
VERBA AND WRITTEN D/C INSTRUCTIONS GONE OVER WITHOUT QUESTIONS OR CONCERNS. WRITTEN SCRIPTS FOR NORCO 10/325MG AND MOTRIN 600MG. INFANT IS SECURED INTO CARRIER AND VERIFIED BY NURSERY. TAKEN OUT BY WHEELCHAIR, HOME BY PRIVATE CAR WITH SPOUSE.
== END 2018-11-25 11:05 | disposition home or self-care (01) | DRG 788 ==
LOC: D.WS 10:31 → D.LD 10:31 → D.SDCHOLD 12:00 → D.WS 15:23 → D.LD 11-23 17:00
PROVIDERS: ADMIT Obstetrics & Gynecology; ATTEND Obstetrics & Gynecology
PROC: 10D00Z1 Extraction of Products of Conception, Low, Open Approach (ICD-10-PCS; principal; 2018-11-22 12:00)
DX: O16.4 Unspecified maternal hypertension, complicating childbirth (principal); O34.211 Maternal care for low transverse scar from previous cesarean delivery; Z3A.38 38 weeks gestation of pregnancy; Z37.0 Single live birth

== ENCOUNTER → 2019-02-22 09:34 | Outpatient (CLI) | payer BC ==
[2018-11-23 09:54] VITALS: BMI 39.1
[~2019-02-22 09:34] MED LIST changes: +HYDROCODON-ACE1 EA10 PO; +MOTRIN600 MG PEG; +PRENAVITE1 TAB PO
== END | disposition home or self-care (01) ==
LOC: D.US 09:30
PROVIDERS: ATTEND Internal Medicine
DX: R19.7 Diarrhea, unspecified (principal)

== ENCOUNTER 2019-03-14 06:35 | Day surgery (SDC) | payer BC ==
[2019-03-10 09:10] LABS: CALC OSMOLALITY 281 mosm/kg (275-300); CALCIUM 9.4 mg/dL (8.5-10.1); CARBON DIOXIDE 25.9 mmol/L (21.0-32.0); CHLORIDE - SERUM 106 mmol/L (98-107); CREATININE - SERUM 0.9 mg/dL (0.6-1.3); GLUCOSE 104 mg/dL (74-106); POTASSIUM - SERUM 3.8 mmol/L (3.5-5.1); SODIUM 142 mmol/L (136-145); UREA NITROGEN 11 mg/dL (7-18); eGFR NON AFRICAN AMERICAN 84 mL/min (90-120)
[2019-03-10 09:17] LABS: BASOPHILS 0.3 % (0-2); EOSINOPHILS 3.3 % (0-7); HEMATOCRIT 40.2 % (36.0-48.0); HEMOGLOBIN 13.7 g/dL (12-16); IMMATURE GRANULOCYTES 0.3 % (0-5); LYMPHOCYTES 27.5 % (15-50); MCH 28.1 pg (26.0-34.0); MCHC 34.1 g/dL (31.0-37.0); MCV 82.4 fL (80.0-100.0); MEAN PLATELET VOLUME 9.5 fL (7.4-10.4); MONOCYTES 11.2 % (2-11); NEUTROPHILS 57.4 % (40-80); RBC 4.88 10x6/uL (4.00-5.40); RDW 14.2 % (11.5-14.5); WBC 6.9 10x3/uL (4.8-10.8)
[2019-03-10 09:19] LABS: PLATELET COUNT 295 10x3/uL (130-400)
[~2019-03-14] VITALS: Ht 160 cm; Wt 99.8 kg
--- NOTE | ~2019-03-14 | OP ---
PATIENT NAME: SHILA HOLLAND MEDICAL RECORD: [id number] :97 LOCATION:D.OPS ADMISSION DATE: SURGEON: KEATON SANCHEZ MD DATE OF OPERATION: 03/14/2019 PREOPERATIVE DIAGNOSES: 1. Gallstones. 2. Morbid obesity with a BMI of 39. 3. Hypertension. POSTOPERATIVE DIAGNOSES: 1. Gallstones. 2. Morbid obesity with a BMI of 39. 3. Hypertension. PROCEDURE: Laparoscopic cholecystectomy. SURGEON: Keaton Sanchez MD REPORT OF PROCEDURE: The patient's abdomen was prepped and draped in sterile fashion. A cutdown was made on the inferior aspect of the umbilicus, 0 Vicryls were placed on the fascia bilaterally and the fascia was incised with 15-blade. I then bluntly entered the peritoneal cavity and placed a 12-mm Ronnie port. Under direct visualization, a 5 mm trocar was placed in the epigastrium and 2 more 5-mm trocars were placed in the right subcostal region. The gallbladder was grasped and elevated. There were no inflammatory changes acutely and there were no adhesions, but it looked to be chronically contracted. The cystic artery and cystic duct were dissected free and these were clipped proximally and distally and ligated in standard fashion. The gallbladder was then taken off the liver bed using electrocautery and placed into the right upper quadrant. Any bleeding from the liver bed was then treated with electrocautery. At this point, the ports and insufflation were then removed and the gallbladder was taken out through the umbilicus. The umbilical fascia was closed with interrupted 0 Vicryls times 3. The wounds were then irrigated out with normal saline and infused with 10 mL of 0.25% Marcaine with epinephrine. The skin incisions were all closed with subcutaneous 5-0 Monocryl and dressed appropriately. COMPLICATIONS: None. CONDITION: Stable. ANESTHESIA: General endotracheal and local. BLOOD LOSS: Minimal. TRANSINT:[id number] Voice Confirmation ID: [id number] DOCUMENT ID: [id number] OPERATIVE REPORT [id number] SHILA HOLLAND KEATON SANCHEZ MD CC: CLARK BAEZ MD [id number] DICTATION DATE: 03/14/19 0857 BROOM MAN: 03/14/19 0910 [id number] [place] [address]
[~2019-03-14 06:35] MED LIST changes: +ETONOGESTREL
[2019-03-14 07:02] VITALS: Ht 160 cm; Wt 99.8 kg
[2019-03-14 07:50] LABS: HCG SERUM NEGATIVE (NEGATIVE)
[2019-03-14] MEDS ORDERED: HYDROCODON-ACE1 EA10 PO (08:49)
--- NOTE | 2019-03-14 09:58 | NUR ---
0949 PT C/O NAUSEA. WAVED A RUBBING ALCHOL SWAB UNDER HER NOSE. TURNED A/C DOWN IN ROOM AND PUT A FAN IN THE ROOM TO CIRCULATE AIR. PT C/O ROOM BEING TOO WARM.
--- NOTE | 2019-03-14 10:00 | NUR ---
1000 PT FEELING BETTER. NO NAUSEA OR VOMITING AT PRESENT.
--- NOTE | 2019-03-14 11:59 | NUR ---
1040 UP TO BATHROOM WITH MINIMAL ASSISTANCE. VOIDED WITHOUT DIFFICULTY.
--- NOTE | 2019-03-14 12:00 | NUR ---
1047 IV DC'D. CATHETER INTACT. NO BLEEDING AT SITE. BANDAID APPLIED. DISCHARGE INSTRUCTIONS GIVEN AND QUESTIONS ANSWERED.
== END 2019-03-14 11:05 | disposition home or self-care (01) ==
LOC: D.OPS 06:35 → D.PAN 08:00 → D.OPS 11:05
PROVIDERS: Anesthesiology; ATTEND Surgery
DX: K80.10 Calculus of gallbladder with chronic cholecystitis without obstruction (principal); E66.01 Morbid (severe) obesity due to excess calories; Z68.39 Body mass index [BMI] 39.0-39.9, adult; I10 Essential (primary) hypertension; Z01.812 Encounter for preprocedural laboratory examination

== ENCOUNTER 2019-03-18 08:35 | Inpatient (IN) | payer BC ==
[~2019-03-18] VITALS: Ht 160 cm; Wt 99.8 kg
[2019-03-18 08:50] VITALS: BP 137/58
--- NOTE | 2019-03-18 08:55 | NUR ---
DR. CRUZ AT BEDSIDE.
--- NOTE | 2019-03-18 09:03 | NUR ---
RADIOLOGY AT BEDSIDE.
[2019-03-18 09:06] LABS: BASOPHILS 0.1 % (0-2); HEMATOCRIT 43.1 % (36.0-48.0); HEMOGLOBIN 14.9 g/dL (12-16); IMMATURE GRANULOCYTES 0.5 % (0-5); LYMPHOCYTES 7.2 % (15-50); MCH 28.7 pg (26.0-34.0); MCHC 34.6 g/dL (31.0-37.0); MEAN PLATELET VOLUME 9.5 fL (7.4-10.4); NEUTROPHILS 83.2 % (40-80); PLATELET COUNT 296 10x3/uL (130-400); RBC 5.19 10x6/uL (4.00-5.40); RDW 14.2 % (11.5-14.5); WBC 10.6 10x3/uL (4.8-10.8)
[2019-03-18 09:16] LABS: APTT 25.1 SECONDS (22.8-39.4); PROTIME 12.7 SECONDS (11.6-15.0)
[2019-03-18 09:17] LABS: D-DIMER-QUANTITATIVE 2.85 ug/mLFEU (0.20-0.54)
[2019-03-18 09:20] LABS: ALBUMIN 3.8 g/dL (3.4-5.0); ALKALINE PHOSPHATASE 245 U/L (46-116); ALT (SGPT) 826 U/L (10-68); BILIRUBIN - TOTAL 3.61 mg/dL (0.2-1.3); CALC OSMOLALITY 284 mosm/kg (275-300); CALCIUM 9.9 mg/dL (8.5-10.1); CARBON DIOXIDE 26.9 mmol/L (21.0-32.0); CHLORIDE - SERUM 105 mmol/L (98-107); CREATININE - SERUM 1.1 mg/dL (0.6-1.3); GLUCOSE 147 mg/dL (74-106); PROTEIN - SERUM 7.7 g/dL (6.4-8.2); SODIUM 141 mmol/L (136-145); UREA NITROGEN 15 mg/dL (7-18); eGFR NON AFRICAN AMERICAN 66 mL/min (90-120)
--- NOTE | 2019-03-18 09:20 | NUR ---
PT REPORTS PAIN HAD DECREASED AT 5/10 AT THIS TIME.
[2019-03-18 09:32] LABS: CKMB 0.4 U/L (0.0-3.6); CREATINE KINASE 96 UL (21-215)
[2019-03-18 09:34] LABS: LIPASE 13921 U/L (73-393); TROPONIN-I < 0.017 ng/mL (0.000-0.060)
[2019-03-18 09:35] LABS: AMYLASE - SERUM 3530 U/L (25-115)
--- NOTE | 2019-03-18 11:40 | NUR ---
PT TAKEN TO RADIOLOGY AT THIS TIME.
--- NOTE | 2019-03-18 11:55 | NUR ---
PT RETURNED FROM RADIOLOGY AT THIS TIME.
[2019-03-18 15:19] VITALS: BP 127/72
[2019-03-18 15:56] LABS: CHOL - HDL RATIO 7.1 ratio (2.3-4.1); LDL-HDL RATIO 4.7 ratio (1.5-3.5)
[2019-03-18 16:58] VITALS: BP 126/72
[2019-03-18 19:54] VITALS: BP 116/62
--- NOTE | 2019-03-18 20:47 | NUR ---
PT ALERT & ORIENTED. JUST FINISHED PUMPING BREAST MILK. C/O ITCHING. GAVE ATARAX PO. HAS PET RESORT CONCIERGE FOR PAIN CONTROL. NO OTHER NEEDS. COMPLETE ASSESSMENT PER FLOW-SHEET. WILL CONTINUE TO MONITOR.
[2019-03-19] VITALS: BP 120/78
[2019-03-19 04:00] VITALS: BP 127/67
[2019-03-19 06:10] LABS: BASOPHILS 0.1 % (0-2); EOSINOPHILS 0.5 % (0-7); HEMATOCRIT 43.7 % (36.0-48.0); HEMOGLOBIN 14.5 g/dL (12-16); IMMATURE GRANULOCYTES 0.3 % (0-5); MCH 28.4 pg (26.0-34.0); MCHC 33.2 g/dL (31.0-37.0); MEAN PLATELET VOLUME 9.7 fL (7.4-10.4); MONOCYTES 9.8 % (2-11); NEUTROPHILS 80.3 % (40-80); PLATELET COUNT 291 10x3/uL (130-400); RBC 5.11 10x6/uL (4.00-5.40)
[2019-03-19 06:19] LABS: MCV 85.5 fL (80.0-100.0)
[2019-03-19 06:41] LABS: ALBUMIN 3.2 g/dL (3.4-5.0); ALKALINE PHOSPHATASE 227 U/L (46-116); BILIRUBIN - TOTAL 3.26 mg/dL (0.2-1.3); CALCIUM 8.9 mg/dL (8.5-10.1); CARBON DIOXIDE 24.9 mmol/L (21.0-32.0); CHLORIDE - SERUM 108 mmol/L (98-107); CREATININE - SERUM 0.9 mg/dL (0.6-1.3); GLUCOSE 107 mg/dL (74-106); POTASSIUM - SERUM 4.4 mmol/L (3.5-5.1); PROTEIN - SERUM 6.9 g/dL (6.4-8.2); SODIUM 142 mmol/L (136-145); eGFR NON AFRICAN AMERICAN 84 mL/min (90-120)
[2019-03-19 06:46] LABS: ALT (SGPT) 495 U/L (10-68); CALC OSMOLALITY 281 mosm/kg (275-300); LIPASE 7967 U/L (73-393); UREA NITROGEN 10 mg/dL (7-18)
[2019-03-19 06:47] LABS: AMYLASE - SERUM 1293 U/L (25-115)
--- NOTE | 2019-03-19 09:09 | NUR ---
ALERT AND ORIENTED X 3. LUNGS CLEAR BILATERALLY IN ALL MORALES. HEART SOUNDS S1 AND S2 HEARD IN ALL MORALES. BOWEL SOUNDS ACTIVE X 4. SKIN INTACT WITHOUT REDNESS. IV TO LEFT AC PATENT WITHOUT REDNESS. DENIES NEEDS. BED LOW. CALL TURCIOS AND PERSONAL ITEMS IN REACH. WILL CONTINUE TO MONITOR.
[2019-03-19 09:32] VITALS: BP 121/56
--- NOTE | 2019-03-19 10:17 | NUR ---
EDUCATION PROVIDED ON NEED FOR UA. HAT IN TOILET. VERBALIZED UNDERSTANDING.
--- NOTE | 2019-03-19 10:56 | NUR ---
SLEEPING. FAMILY AT BEDSIDE. WILL CONTINUE TO MONITOR.
[2019-03-19 13:17] VITALS: BP 116/68
--- NOTE | 2019-03-19 13:38 | NUR ---
RESTING IN BED. AT BEDSIDE. DENIES NEEDS. WILL CONTINUE TO MONITOR.
[2019-03-19 14:14] LABS: HCG URINE NEGATIVE (NEGATIVE)
[2019-03-19 14:15] LABS: APPEARANCE HAZY (CLEAR); BILIRUBIN NEGATIVE (NEGATIVE); COLOR YELLOW (YELLOW); GLUCOSE NEGATIVE (NEGATIVE); KETONE SMALL mg/dL (NEGATIVE); NITRITE NEGATIVE (NEGATIVE); PROTEIN TRACE mg/dL (NEGATIVE); UROBILINOGEN NORMAL (NORMAL)
[2019-03-19 14:16] LABS: BACTERIA FEW /hpf (NONE SEEN); EPITHELIAL CELLS 0-5 /hpf (0-5); RED CELLS - URINE NONE SEEN /hpf (0-5)
--- NOTE | 2019-03-19 15:45 | NUR ---
SLEEPING. AT BEDSIDE. WILL CONTINUE TO MONITOR.
--- NOTE | 2019-03-19 16:10 | NUR ---
PRN TYLENOL GIVEN FOR FEVER 101.7. WILL CONTINUE TO MONITOR.
--- NOTE | 2019-03-19 16:12 | NUR ---
DR BROWNLEE NOTIFIED OF PATIENT TEMP AND THAT PATIENT WOULD LIKE TO SEE MD. STATES WILL SEE PATIENT.
--- NOTE | 2019-03-19 16:54 | NUR ---
TEMP DECREASED TO 100.4.
[2019-03-19 17:11] VITALS: BP 128/78
--- NOTE | 2019-03-19 17:49 | NUR ---
RESTING IN BED. AT BEDSIDE. DENIES PAIN. DENIES NEEDS. BED LOW. CALL TURCIOS AND PERSONAL ITEMS IN REACH.
[2019-03-19 20:00] VITALS: BP 126/69
--- NOTE | 2019-03-19 20:00 | NUR ---
PT ALERT & ORIENTED. DESIGN ARCHITECT FOR PAIN CONTROL. NO NEEDS AT THIS TIME. ASSESSMENT COMPLETE PER FLOW-SHEET. WILL CONTINUE TO MONITOR.
[2019-03-20 04:00] VITALS: BP 127/69
[2019-03-20 04:38] LABS: BASOPHILS 0.1 % (0-2); EOSINOPHILS 0.8 % (0-7); HEMATOCRIT 39.1 % (36.0-48.0); IMMATURE GRANULOCYTES 0.5 % (0-5); LYMPHOCYTES 10.6 % (15-50); MCH 28.4 pg (26.0-34.0); MCHC 33.2 g/dL (31.0-37.0); MCV 85.4 fL (80.0-100.0); MEAN PLATELET VOLUME 9.7 fL (7.4-10.4); MONOCYTES 10.2 % (2-11); NEUTROPHILS 77.8 % (40-80); PLATELET COUNT 285 10x3/uL (130-400); RBC 4.58 10x6/uL (4.00-5.40)
[2019-03-20 04:50] VITALS: BP 127/69
[2019-03-20 04:54] LABS: ALBUMIN 2.8 g/dL (3.4-5.0); ALKALINE PHOSPHATASE 182 U/L (46-116); BILIRUBIN - TOTAL 1.56 mg/dL (0.2-1.3); CALCIUM 8.9 mg/dL (8.5-10.1); CARBON DIOXIDE 23.9 mmol/L (21.0-32.0); CHLORIDE - SERUM 103 mmol/L (98-107); CREATININE - SERUM 0.7 mg/dL (0.6-1.3); GLUCOSE 103 mg/dL (74-106); PROTEIN - SERUM 6.9 g/dL (6.4-8.2); SODIUM 137 mmol/L (136-145); eGFR NON AFRICAN AMERICAN > 90 mL/min (90-120)
[2019-03-20 04:58] LABS: ALT (SGPT) 306 U/L (10-68); AMYLASE - SERUM 460 U/L (25-115); CALC OSMOLALITY 271 mosm/kg (275-300); LIPASE 2612 U/L (73-393); POTASSIUM - SERUM 3.3 mmol/L (3.5-5.1); UREA NITROGEN 7 mg/dL (7-18)
[2019-03-20 07:56] VITALS: BP 107/77
[2019-03-20 12:35] VITALS: BMI 38.9
[2019-03-20 12:45] VITALS: BP 141/62
[2019-03-20 15:43] VITALS: BP 131/69
[2019-03-20 17:26] VITALS: Ht 160 cm; Wt 99.8 kg
[2019-03-20 20:00] VITALS: BP 136/76
--- NOTE | 2019-03-20 22:24 | NUR ---
PT RESTING IN BED. EYES CLOSED. NO SIGNS OF DISTRESS. BREATHING EVEN AND UNLABORED. IV SITE LT AC DRESSING CLEAN DRY AND INTACT. NO SIGNS OF INFECTION. BOWEL SOUNDS ACTIVE. ABD DRESSING CLEAN DRY AND INTACT. PT REFUSES SCDS. WILL CONTINUE PLAN OF CARE. CALL LIGHT IN REACH. BED LOWERED AND LOCKED.
[2019-03-21] VITALS: BP 147/75
--- NOTE | 2019-03-21 01:55 | NUR ---
I have reviewed this patient and I concur with the Shift Assessment completed by the Licensed Practical Nurse today this shift.
[2019-03-21 04:00] VITALS: BP 119/62
[2019-03-21 06:15] LABS: ALBUMIN 2.5 g/dL (3.4-5.0); ALKALINE PHOSPHATASE 150 U/L (46-116); BILIRUBIN - TOTAL 0.62 mg/dL (0.2-1.3); CALCIUM 8.5 mg/dL (8.5-10.1); CARBON DIOXIDE 24.1 mmol/L (21.0-32.0); CHLORIDE - SERUM 105 mmol/L (98-107); CREATININE - SERUM 0.7 mg/dL (0.6-1.3); GLUCOSE 96 mg/dL (74-106); LIPASE 550 U/L (73-393); POTASSIUM - SERUM 3.3 mmol/L (3.5-5.1); PROTEIN - SERUM 6.4 g/dL (6.4-8.2); SODIUM 138 mmol/L (136-145); eGFR NON AFRICAN AMERICAN > 90 mL/min (90-120)
[2019-03-21 06:26] LABS: ALT (SGPT) 189 U/L (10-68); AMYLASE - SERUM 127 U/L (25-115); CALC OSMOLALITY 272 mosm/kg (275-300); UREA NITROGEN 3 mg/dL (7-18)
[2019-03-21 06:31] LABS: BASOPHILS 0.1 % (0-2); HEMATOCRIT 34.6 % (36.0-48.0); HEMOGLOBIN 11.4 g/dL (12-16); IMMATURE GRANULOCYTES 0.9 % (0-5); LYMPHOCYTES 11.7 % (15-50); MCH 28.1 pg (26.0-34.0); MCHC 32.9 g/dL (31.0-37.0); MCV 85.2 fL (80.0-100.0); MEAN PLATELET VOLUME 9.6 fL (7.4-10.4); MONOCYTES 9.5 % (2-11); NEUTROPHILS 74.8 % (40-80); PLATELET COUNT 264 10x3/uL (130-400); RBC 4.06 10x6/uL (4.00-5.40); RDW 14.7 % (11.5-14.5)
[2019-03-21 06:35] LABS: WBC 10.6 10x3/uL (4.8-10.8)
[2019-03-21 09:30] VITALS: BP 120/67
[2019-03-21 10:13] LABS: ACLA - IGG AB <9 GPL U/mL (0-14); ACLA - IGM AB <9 MPL U/mL (0-12)
--- NOTE | 2019-03-21 11:30 | NUR ---
PATIENT STATED SHE WOULD GIVE HER OWN SUPPOSITORIES. RECIEVED MIRALAX AND COLACE WELL. NO COMPLAINTS. IV INTACT. CALL LIGHT WITHIN.
[2019-03-21 12:07] LABS: MAGNESIUM - SERUM 1.8 mg/dL (1.8-2.4)
[2019-03-21 12:11] LABS: POTASSIUM - SERUM 3.8 mmol/L (3.5-5.1)
[2019-03-21 14:01] VITALS: BP 130/78
--- NOTE | 2019-03-21 15:43 | NUR ---
PATIENT IN BED WITH IV INTACT. NO COMPLAINTS OR SIGNS OF DISTRESS. EYES OPEN AWAKE RIGHT NOW. FAMILY AT BEDSIDE. CALL LIGHT WITHIN REACH.
--- NOTE | 2019-03-21 15:58 | MORECARE ---
CASE MANAGEMENT DISCHARGE SUMMARY PATIENT: SHILA HOLLAND UNIT: [id number] ADM DATE: 03/18/19 AGE: 23 : [birth year] SEX: F ROOM/BED: D.2213 AUTHOR: AYAKA,DOC PHYSICIAN: REFERRING PHYSICIAN: XAVI KENNEDY MD DATE OF SERVICE: 03/21/19 Discharge Plan Patient Name: SHILA HOLLAND Facility: [facility]:[place] : 1995 Planned Disposition: Home or Self Care Anticipated Discharge Date: Discharge Date: Expected LOS: Initial Reviewer: [email or web address] Initial Review Date: 03/18/2019 Generated: 03/21/19 4:57 pm Comments DCP- Discharge Planning Updated by [email or web address]: Sirisha Stafford on 03/21/19 2:[address] Patient Name: SHILA HOLLAND Admission Status: ER Accout number: [id number] Admission Date: 03-18-2019 : 1995 Admission Diagnosis: Attending: XAVI KENNEDY Current LOS: 3 Anticipated DC Date: Planned Disposition: Home or Self Care Primary Insurance: [employer] [place] [facility] Discharge Planning Comments: CM met with patient to complete initial dc planning assessment. CM educated patient on the CM role and verbal consent given by patient to complete assessment. Patient lives at home with her where she is independent with her care. At discharge patient plans to return home and feels this is a safe discharge. CM discussed availability of home health, rehab services, and medical equipment. Patient denied known discharge needs at this time. CM will continue to follow and will assist as needed with dc plans/needs. General Manager Farm: Sirisha Stafford DCPIA - Discharge Planning Initial Assessment Updated by [email or web address]: Sirisha Stafford on 03/21/19 3:54 pm * Is the patient Alert and Oriented? Yes * How many steps to enter\exit or inside your home? * PCP DR CLARK ANDREA IN [place] * Pharmacy [facility] * Preadmission Environment Home with Family * ADLs Independent * Equipment None * List name and contact numbers for known caregivers / representatives who currently or will assist patient after discharge: OTF SKYLER [phone] * Verbal permission to speak to the caregivers and representatives has been obtained from the patient. Yes * Community resources currently utilized None * Additional services required to return to the preadmission environment? No * Can the patient safely return to the preadmission environment? Yes * Has this patient been hospitalized within the prior 30 days at any hospital? No Patient Name: SHILA HOLLAND Page [id number] at 1558 All edits/amendments must be made on the electronic document DICTATION DATE: 03/21/191556 CANDY SEPARATOR HARD: HIPOLITO 03/21/191556 RPT#: [id number] DC DATE: STATUS: ADM IN [facility] [address] [place] [address] END OF REPORT
[2019-03-21 17:42] VITALS: BP 123/60
--- NOTE | 2019-03-21 18:30 | NUR ---
PATIENT IN BED WITH IV INTACT. NO COMPLAINTS OR SIGNS OF DISTRESS. WAITING TO SEE DR. BROWNLEE TO INCREASE DIET. FAMILY AT BEDSIDE. VICKY BELTRAN WITHIN REACH.
[2019-03-21 20:00] VITALS: BP 129/67
[2019-03-22] VITALS: BP 118/64
--- NOTE | 2019-03-22 00:56 | NUR ---
PT RESTING IN BED. EYES CLOSED. NO SIGNS OF DISTRESS. BREATHING EVEN AND UNLABORED. IV SITE LT AC DRESSING CLEAN DRY AND INTACT. NO SIGNS OF INFECTION. BOWEL SOUNDS ACTIVE. ABD LAP SITES CLEAN DRY AND INTACT. WILL CONTINUE PLAN OF CARE. CALL LIGHT IN REACH. BED LOWERED AND LOCKED.
[2019-03-22 04:00] VITALS: BP 133/68
[2019-03-22 04:08] LABS: LUPUS - INTERPRETATION Comment: (()); LUPUS - THROMBIN TIME 15.5 sec (0.0-23.0); LUPUS - dRVVT 44.5 sec (0.0-47.0); PTT-LA 46.8 sec (0.0-51.9)
[2019-03-22 05:17] LABS: BASOPHILS 0.1 % (0-2); EOSINOPHILS 3.5 % (0-7); HEMATOCRIT 33.9 % (36.0-48.0); HEMOGLOBIN 11.4 g/dL (12-16); IMMATURE GRANULOCYTES 0.7 % (0-5); LYMPHOCYTES 15.2 % (15-50); MCH 28.6 pg (26.0-34.0); MCHC 33.6 g/dL (31.0-37.0); MCV 85.2 fL (80.0-100.0); MEAN PLATELET VOLUME 9.4 fL (7.4-10.4); MONOCYTES 9.2 % (2-11); NEUTROPHILS 71.3 % (40-80); PLATELET COUNT 308 10x3/uL (130-400); RBC 3.98 10x6/uL (4.00-5.40); RDW 14.8 % (11.5-14.5); WBC 9.5 10x3/uL (4.8-10.8)
[2019-03-22 06:13] LABS: ALBUMIN 2.4 g/dL (3.4-5.0); ALKALINE PHOSPHATASE 140 U/L (46-116); BILIRUBIN - TOTAL 0.46 mg/dL (0.2-1.3); CALCIUM 8.5 mg/dL (8.5-10.1); CARBON DIOXIDE 24.2 mmol/L (21.0-32.0); CHLORIDE - SERUM 108 mmol/L (98-107); CREATININE - SERUM 0.6 mg/dL (0.6-1.3); GLUCOSE 97 mg/dL (74-106); LIPASE 425 U/L (73-393); PROTEIN - SERUM 6.6 g/dL (6.4-8.2); SODIUM 142 mmol/L (136-145); eGFR NON AFRICAN AMERICAN > 90 mL/min (90-120)
[2019-03-22 06:17] LABS: ALT (SGPT) 137 U/L (10-68); AMYLASE - SERUM 83 U/L (25-115); CALC OSMOLALITY 279 mosm/kg (275-300); POTASSIUM - SERUM 3.2 mmol/L (3.5-5.1); UREA NITROGEN 5 mg/dL (7-18)
[2019-03-22 08:29] VITALS: BP 122/63
--- NOTE | 2019-03-22 10:01 | NUR ---
PT SITTING UP IN BED. HEAT PACK BROUGHT FOR BACK PAIN. NO S/S OF ACUTE DISTRESS. CL IN PLACE.
--- NOTE | 2019-03-22 11:00 | NUR ---
IV RED, SWOLLEN, PAINFUL. DC IV WITH TIP IN TACT. RESITED IV TO R FA. FLUSHED WELL.
[2019-03-22 12:15] LABS: POTASSIUM - SERUM 3.5 mmol/L (3.5-5.1)
[2019-03-22 13:26] VITALS: BP 130/67
[2019-03-22] MEDS ORDERED: AUGMENTIN 875-11 TAB PO (14:20)
[2019-03-22] MEDS ORDERED: COLACE100 MG PO (14:20)
[2019-03-22] MEDS ORDERED: FLORAJEN3 CAPS460 MG PO (14:20)
[2019-03-22] MEDS ORDERED: FLAGYL500 MG PO (14:21)
--- NOTE | 2019-03-22 15:00 | NUR ---
DC INSTRUCTIONS AND EDUCATION DONE WITH PT. IV DC WITH TIP INTACT. ALL BELONGINGS SENT DOWN WITH PT. AMBULATED OFF THE FLOOR WITH MOTHER AT SIDE. NO S/S OF ACUTE DISTRESS.
--- NOTE | 2019-03-23 15:22 | MORECARE ---
CASE MANAGEMENT DISCHARGE SUMMARY PATIENT: SHILA HOLLAND UNIT: [id number] ADM DATE: 03/18/19 AGE: 23 : [birth year] SEX: F ROOM/BED: D.2213 AUTHOR: AYAKA,DOC PHYSICIAN: REFERRING PHYSICIAN: XAVI KENNEDY MD DATE OF SERVICE: 03/23/19 Discharge Plan Patient Name: SHILA HOLLAND Facility: [facility]:[place] : 1995 Planned Disposition: Home or Self Care Anticipated Discharge Date: Discharge Date: 03/22/2019 Expected LOS: 0 Initial Reviewer: [email or web address] Initial Review Date: 03/18/2019 Generated: 03/23/19 4:22 pm Comments DCP- Discharge Planning Updated by [email or web address]: Sirisha Stafford on 03/21/19 2:[address] Patient Name: SHILA HOLLAND Admission Status: ER Accout number: [id number] Admission Date: 03-18-2019 : 1995 Admission Diagnosis: Attending: XAVI KENNEDY Current LOS: 3 Anticipated DC Date: Planned Disposition: Home or Self Care Primary Insurance: [employer] [facility] Discharge Planning Comments: CM met with patient to complete initial dc planning assessment. CM educated patient on the CM role and verbal consent given by patient to complete assessment. Patient lives at home with her where she is independent with her care. At discharge patient plans to return home and feels this is a safe discharge. CM discussed availability of home health, rehab services, and medical equipment. Patient denied known discharge needs at this time. CM will continue to follow and will assist as needed with dc plans/needs. Elevator Mechanic: Sirisha Stafford DCPIA - Discharge Planning Initial Assessment Updated by [email or web address]: Sirisha Stafford on 03/21/19 3:54 pm * Is the patient Alert and Oriented? Yes * How many steps to enter\exit or inside your home? * PCP DR CLARK ANDREA IN [place] * Pharmacy [facility] * Preadmission Environment Home with Family * ADLs Independent * Equipment None * List name and contact numbers for known caregivers / representatives who currently or will assist patient after discharge: OTFPK HOLLAND [phone] * Verbal permission to speak to the caregivers and representatives has been obtained from the patient. Yes * Community resources currently utilized None * Additional services required to return to the preadmission environment? No * Can the patient safely return to the preadmission environment? Yes * Has this patient been hospitalized within the prior 30 days at any hospital? No Last DP export: 03/21/19 2:57 pm Patient Name: SHILA HOLLAND Page [phone] at 1522 All edits/amendments must be made on the electronic document DICTATION DATE: 03/23/19 1522 DIGITAL CONTENT SPECIALIST: HIPOLITO 03/23/19 1522 RPT#: [id number] DC DATE:03/22/19 STATUS: DIS IN [facility] [address] [place] [address] END OF REPORT
[2019-03-23 17:08] LABS: FACTOR II DNA ANALYSIS Negative (())
== END 2019-03-22 15:09 | disposition home or self-care (01) | DRG 440 ==
LOC: D.ER 08:35 → D.MS 13:20
PROVIDERS: Emergency Medicine; Internal Medicine Hematology & Oncology; ADMIT Internal Medicine Nephrology; ATTEND Internal Medicine Nephrology
DX: K85.90 Acute pancreatitis without necrosis or infection, unspecified (principal); E66.9 Obesity, unspecified; Z68.38 Body mass index [BMI] 38.0-38.9, adult; K21.9 Gastro-esophageal reflux disease without esophagitis; K80.50 Calculus of bile duct without cholangitis or cholecystitis without obstruction; L29.9 Pruritus, unspecified; T40.605A Adverse effect of unspecified narcotics, initial encounter; K59.09 Other constipation; E78.5 Hyperlipidemia, unspecified; K76.0 Fatty (change of) liver, not elsewhere classified; N20.0 Calculus of kidney

== ENCOUNTER → 2019-06-05 13:14 | Outpatient (CLI) | payer BC ==
[2019-03-20 17:26] VITALS: BMI 38.9
[~2019-06-05 13:14] MED LIST changes: +AUGMENTIN 875-11 TAB PO; +FLAGYL500 MG PO; +FLORAJEN3 CAPS460 MG PO
== END | disposition home or self-care (01) ==
LOC: D.RAD 13:14
PROVIDERS: ATTEND Internal Medicine
DX: M25.531 Pain in right wrist (principal)

== ENCOUNTER 2021-01-10 14:00 | Outpatient (CLI) | payer OTHER ==
[2020-08-28 14:04] VITALS: BMI 39.0
[~2021-01-10 14:00] MED LIST changes: +ZOFRAN ODT4 MG/UDTAB PO
== END 2021-01-10 23:59 | disposition home or self-care (01) ==
LOC: D.MAMMO 14:00
PROVIDERS: ATTEND Internal Medicine
DX: R92.8 Other abnormal and inconclusive findings on diagnostic imaging of breast (principal); Z84.81 Family history of carrier of genetic disease